=== PATIENT | female | born 1940 | race Caucasian/White ===

== ENCOUNTER 2022-07-06 14:45 | Outpatient (RCR) | payer MEDICARE, SELFPAY ==
--- NOTE | 2022-06-19 15:01 | PTOPEVAL ---
Thank you for referring Neena Ortega to [facility] She is scheduled to be seen for therapy? 0-2 x/week for 5 weeks, depending upon the severity of her vestibular s/s. Please review, sign, date and return this plan of care ANNA. I agree with and certify that the following plan of care is medically necessary. Referring Physician Date Attending Provider: Arturo Pack MD Outpatient Past Medical History Past Medical History Source of Past Medical History Patient Neurological History Hx Neurological Disorders No Significant History Cardiovascular History Hx Hypertension Yes: meds Respiratory History Hx Respiratory Disorders No Significant History Gastrointestinal History Hx Gastroesophageal Reflux Disease Yes: meds Genitourinary History Hx Urinary Tract Infection Yes: to see PA later today, ? UTI Musculoskeletal History Hx Joint Replacement Yes: B TKR; B THR; Hx Spinal Surgery Yes: lumbar surgery x2 Hx Other Musculoskeletal Disorders Yes: R foot surgery-- reconstruction ; L hammer toe/ foot pain; neck pain Endocrine History Hx Hypothyroidism Yes: meds Evaluation Information Problem Diagnosis dizziness/vestibular therapy Onset January 2022 Prior Level of Function Home Setting Home Type Assisted Living Facility Mobility Assistive Devices (Used Last 3 None Months) Comments Additional Prior Level of Function live in assisted living Comments facility; indep bathing, dressing; Pain Assessment Self Report Self Report Pain Level 0 Pain Score Pain Score 0: Self Report Cervical ROM Comments cervical active ROM: rotation to L increase pain in neck/ rotation to R no pain--ranges same ~ 65'; flexion WNL no pain; extension 30'- bother a little in neck; B shoulder AROM is WNL and no pain increase Vestibular Evaluation Vestibular Medical Information Past Vestibular History Cervical Pain,Headaches, Infection,Sinus/Allergy Issues ,Visual Issues Medical History Comments have headaches when have dizziness; have seasonal allergies--doing OK now; have glasses for everything-- not wearing now due to glasses fog up with mask--normally wear glasses all the time; bifocals; last eye exam about
--- NOTE | 2022-06-22 08:40 | PCPTNOTE ---
Patient did not show up for scheduled appointment this date. Called patient and had to leave a message.
--- NOTE | 2022-07-11 14:27 | PCPTNOTE ---
Patient called & cancelled scheduled appointment this date due to her blood pressure being high.
--- NOTE | 2022-07-18 15:42 | PCPTNOTE ---
Patient did not show up for scheduled appointment this date. Called and had to leave a message.
--- NOTE | 2022-07-20 11:26 | PCPTNOTE ---
Patient called & cancelled scheduled appointment this date. Stating she feels, she is doing much better and really doesn't think she need come anymore. Will talk to the therapist, Shabana.
--- NOTE | 2022-07-26 11:54 | PCPTNOTE ---
PHYSICAL THERAPY DISCHARGE REPORT 07-26-22 Attending Provider: Arturo Pack MD Patient:Neena Ortega Date of :1940 Ms. Ortega has received 4 PT sessions from June 19 to , for vestibular therapy. She then called and canceled her appointments, stating she was feeling well and did not need any more therapy, therefore she will be discharged at this time. Thank you for referring [facility] to [facility]. Please review, sign, date and return this discharge summary ANNA. I have been updated about the patient's current status and I agree with discharge from the above service at this time. Referring Physician Date
== END 2022-07-26 14:15 | disposition home or self-care (01) ==
LOC: ANHPT 14:45
PROVIDERS: PCP Nurse Practitioner Family; Visit Provider Otolaryngology
DX: R42 Dizziness and giddiness (principal)
CPT/HCPCS: 97110; 97140; 97161; 97530; 99199